=== PATIENT | female | born 1945 | race Caucasian/White ===

== ENCOUNTER → 2019-12-14 | Outpatient (CLI) | payer MEDICARE ==
[~2019-12-14] MED LIST: REGADENOSON 0.4 MG/5 ML SYR IV ONE
--- NOTE | 2019-12-16 14:03 | Myoview Stress Test ---
DATE OF STUDY: 12/14/2019 09:26:00 Stress Test - Treadmill ONLY PROCEDURE TITLE: Rest/stress single isotope SPECT imaging with pharmacologic stress and gated SPECT imaging. Dictation #[id number]. INDICATION: Coronary artery disease. PROCEDURE IN DETAIL: Pharmacologic stress testing was performed with regadenoson per protocol. The heart rate was 64 beats per minute at rest and increased to 107 beats per minute during the regadenoson infusion. The resting blood pressure 124/55 mmHg and decreased to 114/49 mmHg, which is a normal response. The resting electrocardiogram demonstrated normal sinus rhythm with PVCs. There were no ST-segment changes suggestive of myocardial ischemia. IMPRESSION: Myocardial perfusion imaging was performed at rest following the injection of 11 mCi of tetrofosmin. At peak pharmacologic effect, the patient was injected with 33 mCi of tetrofosmin. Gated post-stress tomographic imaging was performed. FINDINGS: The overall quality of study is fair. Attenuation artifact was present. Left ventricular cavity is noted to be normal size on the rest and stress studies. SPECT images demonstrate a medium-size mild perfusion defect in the inferior wall and apex at rest that improves with stress. Gated SPECT imaging reveals normal myocardial thickening and wall motion. The left ventricular ejection fraction was greater than 50% by visual estimate. No regional wall motion abnormalities were observed. CONCLUSION: Myocardial perfusion imaging is abnormal. There is a small, mild nontransmural scar in the apex, cannot rule out attenuation artifact. Overall, left ventricular systolic pressure was normal without regional wall motion abnormalities. Penelope Waller MD ABS/MODL /[id number]
== END ==
LOC: NM 09:16
PROVIDERS: ATTEND Internal Medicine
DX: I25.10 Atherosclerotic heart disease of native coronary artery without angina pectoris (principal)
CPT/HCPCS: 78452; 93017; 93306; A9502; J2785